=== PATIENT | male | born 1950 | race Caucasian/White ===

== ENCOUNTER 2017-02-14 12:23 | Outpatient (CLI) | payer MEDICARE, MEDICAID ==
[~2017-02-14] VITALS: Ht 182.9 cm; Wt 93.9 kg
[2017-02-14 12:34] VITALS: BP 106/69
[2017-02-14 13:50] LABS: BASOPHILS # (AUTO) 0.1 10^3/uL (0.0-0.1); BASOPHILS % (AUTO) 2 % (0-10); EOSINOPHILS # (AUTO) 0.6 10^3/uL (0.0-0.3); EOSINOPHILS % (AUTO) 8 % (0-10); LYMPHOCYTES # (AUTO) 2.5 X 10^3 (1.0-4.0); LYMPHOCYTES % (AUTO) 34 % (12-44); MEAN CORPUSCULAR HEMOGLOBIN 28 PG (25-34); MEAN CORPUSCULAR HGB CONC 35 G/DL (32-36); MEAN CORPUSCULAR VOLUME 81 FL (80-99); MEAN PLATELET VOLUME 9.6 FL (7.4-10.4); MONOCYTES % (AUTO) 13 % (0-12); NEUTROPHILS # (AUTO) 3.2 X 10^3 (1.8-7.8); NEUTROPHILS % (AUTO) 44 % (42-75); PLATELET COUNT 269 10^3/uL (130-400); RED BLOOD COUNT 4.56 10^6/uL (4.35-5.85); RED CELL DISTRIBUTION WIDTH 15.4 % (10.0-14.5); WHITE BLOOD COUNT 7.4 10^3/uL (4.3-11.0)
[2017-02-14 14:17] LABS: CALCIUM 9.7 MG/DL (8.5-10.1); CREATININE SERUM 1.69 MG/DL (0.60-1.30); POTASSIUM 3.9 MMOL/L (3.6-5.0)
[2017-02-14] MEDS ORDERED: METF1000 PO (15:09)
[2017-02-14] MEDS ORDERED: ROSU40TA20 PO (15:09)
[2017-02-14] MEDS ORDERED: FURO40TA4 PO (15:09)
[2017-02-14] MEDS ORDERED: RT-ALBUINH IH (15:09)
[2017-02-14] MEDS ORDERED: LOSA25TA21 PO (15:09)
[2017-02-14] MEDS ORDERED: APIX5TAB PO (15:09)
[2017-02-14] MEDS ORDERED: AMIT25TA9 PO (15:09)
[2017-02-14] MEDS ORDERED: CARV12.53 PO (15:09)
[2017-02-14] MEDS ORDERED: ASPI-586 PO (15:09)
[2017-02-14] MEDS ORDERED: HYDR-3812 PO (15:09)
== END 2017-02-14 13:10 | disposition home or self-care (01) ==
LOC: PREOP 12:23
PROVIDERS: ATTEND Orthopaedic Surgery
DX: Z01.812 Encounter for preprocedural laboratory examination (principal); Z11.2 Encounter for screening for other bacterial diseases; M48.06 Spinal stenosis, lumbar region; Z22.322 Carrier or suspected carrier of Methicillin resistant Staphylococcus aureus
CPT/HCPCS: 36415; 80048; 85025; 86850; 86900; 86901; 87081

== ENCOUNTER 2017-02-18 09:24 | Inpatient (IN) | payer MEDICARE, MEDICAID ==
[2017-02-18] VITALS (12 sets, daily range): BP systolic 80–132; BP diastolic 48–86
[~2017-02-18] VITALS: Ht 182.9 cm; Wt 93.9 kg
[~2017-02-18 09:24] MED LIST: AMIT25TA9 PO; APIX5TAB PO; ASPI-586 PO; CARV12.53 PO; FURO40TA4 PO; HYDR-3812 PO; LOSA25TA21 PO; METF1000 PO; ROSU40TA20 PO; RT-ALBUINH IH
[2017-02-18] MEDS ORDERED: BACITRACIN 100,000 UNIT/NS 1000 ML POUR BOTTLE IR ONE ×2 (09:45)
[2017-02-18] MEDS ORDERED: ceFAZolin 2 GM/NS 50 ML IV ONE (10:15)
[2017-02-18] MEDS ORDERED: CATHETER FLUSH 10 ML SYR IV PRN (10:15)
[2017-02-18] MEDS ORDERED: FAMOTIDINE 20MG/2ML IV (PEPCID) ONE (10:33)
[2017-02-18] MEDS ORDERED: FAMOTIDINE 20MG/2ML IV (PEPCID) IV ONE (10:45)
[2017-02-18] MEDS: LACTATED RINGERS 1,000 ML IV PRN ×3 (10:55→15:00)
[2017-02-18] MEDS ORDERED: ONDANSETRON 4 MG/2 ML (SDV) Z0FRAN ONE (11:13)
[2017-02-18] MEDS ORDERED: SEVOFLURANE (ULTANE) 15 ML INHAL SOLN ONE ×14 (11:13→15:07)
[2017-02-18] MEDS ORDERED: ROCURONIUM 50 MG/5 ML (ZEMURON) VIAL IV ONE ×2 (11:13→14:28)
[2017-02-18] MEDS ORDERED: proPOfol 200 MG/20 ML (DIPRIVAN) VIAL IV ONE (11:13)
[2017-02-18] MEDS ORDERED: DEXAMETHASONE PF 10 MG/ML (DECADRON) VIAL ONE (11:13)
[2017-02-18] MEDS ORDERED: LACTATED RINGERS 1,000 ML IV ONE ×3 (11:13→14:00)
[2017-02-18] MEDS ORDERED: fentaNYL INJECTION 250 MCG/5 ML AMP ONE (11:14)
[2017-02-18] MEDS ORDERED: MIDAZOLAM 2 MG/2 ML (VERSED) VIAL ONE (11:14)
[2017-02-18] MEDS ORDERED: BUP/EPI 0.5% 1:200,000 (MARCAINE) 10ML VIAL IJ ONE (11:49)
[2017-02-18] MEDS ORDERED: VANCOMYCIN 1000 MG/VIAL ONE (11:50)
[2017-02-18] MEDS ORDERED: NS (IVPB) 100 ML ONE (14:00)
[2017-02-18] MEDS ORDERED: DEXMEDETOMIDINE 200 MCG/2 ML (PRECEDEX) VIAL IV ONE (14:00)
[2017-02-18] MEDS ORDERED: NEOSTIGMINE (BLOXIVERZ ) 1 MG/1ML 10 ML VIAL ONE (14:30)
[2017-02-18] MEDS ORDERED: GLYCOPYRROLATE 0.2 MG/ML (ROBINUL) 2 ML VIAL ONE (14:30)
[2017-02-18] MEDS ORDERED: MILK OF MAGNESIA 400 MG/5 ML 30 ML UDC PO PRN (15:15)
[2017-02-18] MEDS ORDERED: BISACODYL 5 MG (DULCOLAX) TABLET PO PRN (15:15)
[2017-02-18] MEDS ORDERED: ACETAMINOPHEN 325 MG TABLET/CAPLET (TYLENOL) PO PRN (15:15)
[2017-02-18] MEDS ORDERED: NALOXONE 0.4 MG/ML 1 ML (NARCAN) VIAL IV PRN (15:15)
[2017-02-18] MEDS ORDERED: BISACODYL 10 MG SUPP (DULCOLAX) PR PRN (15:15)
[2017-02-18] MEDS ORDERED: PROMETHAZINE INJ 25 MG/ML (PHENERGAN) AMP IVP PRN (15:15)
[2017-02-18] MEDS ORDERED: ONDANSETRON 4 MG/2 ML (SDV) Z0FRAN IVP PRN (15:15)
[2017-02-18] MEDS ORDERED: MEPERIDINE (DEMEROL) INJ 50 MG/ML IVP PRN (15:15)
[2017-02-18] MEDS ORDERED: ONDANSETRON 4 MG/2 ML (SDV) Z0FRAN IV PRN ×2 (15:15)
[2017-02-18] MEDS ORDERED: HYDROmorphone (DILAUDID) 2 MG/ML VIAL IVP PRN (15:15)
[2017-02-18] MEDS ORDERED: RT-ALBUTEROL HFA (VENTOLIN) PER PUFF IH PRN (15:15)
[2017-02-18] MEDS ORDERED: morphine INJ 10 MG/ML 1ML (SYR OR VIAL) IVP PRN (15:15)
--- NOTE | 2017-02-18 16:12 | Diagnostic Imaging Report ---
INDICATION: Low back pain. DISCUSSION: Fluoroscopic support is provided during intraoperative posterior fusion of the lower lumbar spine. Please see the operative report for full detail. Fluoroscopy time: 46 seconds. IMPRESSION: 1. Intraoperative lumbar spine fusion. Dictated by: Dictated on workstation # [id number]
[2017-02-18] MEDS ORDERED: NS IV 500 ML 500 ML IV ONE (17:00)
[2017-02-18] MEDS ORDERED: RT-ALBUTEROL SULF 2.5 MG/3 ML PRE-MIX VIAL IH PRN (18:15)
[2017-02-18] MEDS: ceFAZolin INJECTION 1,000 MG in NS (IVPB) 50 ML IV SCH (20:46)
[2017-02-18] MEDS ORDERED: NON-FORMULARY MEDICATION 1 EA EA (Rosuvastatin Calcium 40 MG) PO SCH (21:00)
[2017-02-18] MEDS: ROSUVASTATIN 20 MG (CRESTOR) TABLET PO SCH (21:06)
[2017-02-18] MEDS: DOCUSATE SODIUM 100 MG (COLACE) CAP PO SCH (21:07)
[2017-02-18] MEDS: FAMOTIDINE 20 MG (PEPCID) TABLET PO SCH (21:07)
[2017-02-18] MEDS: AMITRIPTYLINE 25 MG (ELAVIL) TAB PO SCH (21:07)
[2017-02-18] MEDS: CYCLOBENZAPRINE 10 MG (FLEXERIL) TAB PO PRN (21:07)
[2017-02-18] MEDS: morphine INJ 4 MG/ML 1 ML (VIAL/SYRINGE) IVP PRN (21:20)
[2017-02-18] MEDS: CARVEDILOL 12.5 MG (COREG) TABLET PO SCH (22:30)
[2017-02-18] MEDS: oxyCODONE/APAP 5/325MG (PERCOCET 5) TABLET PO PRN (22:31)
[2017-02-19] VITALS (9 sets, daily range): BP systolic 90–115; BP diastolic 44–69
[2017-02-19] MEDS: ceFAZolin INJECTION 1,000 MG in NS (IVPB) 50 ML IV SCH ×2 (04:22→12:13)
[2017-02-19 05:27] LABS: MEAN PLATELET VOLUME 9.6 FL (7.4-10.4); RED BLOOD COUNT 3.64 10^6/uL (4.35-5.85); RED CELL DISTRIBUTION WIDTH 14.9 % (10.0-14.5); WHITE BLOOD COUNT 10.2 10^3/uL (4.3-11.0)
[2017-02-19 05:51] LABS: ALANINE AMINOTRANSFERASE 65 U/L (0-55); ALBUMIN 3.3 GM/DL (3.2-4.5); ANION GAP 8 MMOL/L (5-14); ASPARTATE AMINO TRANSFERASE 82 U/L (5-34); BILIRUBIN,TOTAL 0.4 MG/DL (0.1-1.0); BLOOD UREA NITROGEN 14 MG/DL (7-18); BUN/CREATININE RATIO 15; CALCIUM 8.3 MG/DL (8.5-10.1); CARBON DIOXIDE 23 MMOL/L (21-32); CHLORIDE 103 MMOL/L (98-107); CREATININE SERUM 0.94 MG/DL (0.60-1.30); GFR ESTIMATED > 60; GLUCOSE 187 MG/DL (70-105); POTASSIUM 3.8 MMOL/L (3.6-5.0); SODIUM 134 MMOL/L (135-145); TOTAL PROTEIN 5.9 GM/DL (6.4-8.2)
--- NOTE | 2017-02-19 07:53 | Anesthesia-General Post-Op ---
General Patient Condition Mental Status/LOC: Same as Preop Cardiovascular: Satisfactory Nausea/Vomiting: Absent Respiratory: Satisfactory Pain: Controlled Complications: Absent Post Op Complications Complications None Follow Up Care/Instructions Patient Instructions None needed. Anesthesia/Patient Condition Patient Condition Patient is doing well, no complaints, stable vital signs, no apparent adverse anesthesia problems. No complications reported per nursing. D/C home per [facility] [place] Criteria: No TUSHAR BRAR CRNA Feb 19, 2017 07:53
[2017-02-19] MEDS ORDERED: ROPI1TAB2 PO (08:57)
[2017-02-19] MEDS ORDERED: INSU100V16 SQ (08:57)
[2017-02-19] MEDS ORDERED: GEMF600T3 PO (08:57)
[2017-02-19] MEDS ORDERED: TIZA4TAB3 PO (08:57)
[2017-02-19] MEDS ORDERED: INSU100I29 SQ (08:57)
[2017-02-19] MEDS ORDERED: ESOM40CA52 PO (08:57)
[2017-02-19] MEDS ORDERED: INSU100I29 SC (08:57)
[2017-02-19] MEDS: LOSARTAN 25 MG (COZAAR) TAB PO SCH (09:04)
[2017-02-19] MEDS: CARVEDILOL 12.5 MG (COREG) TABLET PO SCH ×2 (09:05→21:16)
[2017-02-19] MEDS: DOCUSATE SODIUM 100 MG (COLACE) CAP PO SCH ×2 (09:05→21:16)
[2017-02-19] MEDS: FUROSEMIDE 40 MG (LASIX) TAB PO SCH (09:05)
[2017-02-19] MEDS: MULTIVIT W/MINERALS TAB (THERAGRAN M) PO SCH (09:05)
[2017-02-19] MEDS: FAMOTIDINE 20 MG (PEPCID) TABLET PO SCH ×2 (09:06→21:16)
[2017-02-19] MEDS: oxyCODONE/APAP 5/325MG (PERCOCET 5) TABLET PO PRN ×3 (09:07→21:16)
[2017-02-19] MEDS ORDERED: RT-ALBUTEROL/IPRATROPIUM 3 ML (DUONEB) VIAL INH SCH (09:45)
[2017-02-19] MEDS ORDERED: SCOPOLAMINE 1.5 MG (TRANSDERM-SCOP) PATCH TOP SCH (09:45)
--- NOTE | 2017-02-19 09:45 | Physical Therapy Evaluation ---
PT Evaluation-General Medical Diagnosis Admission Date Feb 18, 2017 at 09:24 Medical Diagnosis: stenosis Onset Date: Feb 18, 2017 Therapy Diagnosis Therapy Diagnosis: general weakness/debility Height/Weight Height (Feet): 6 Height (Inches): 0.00 Weight (Pounds): 207 Weight (Ounces): 0.0 Precautions Precautions/Isolations: Standard Precautions Referral Physician: Marko Reason for Referral: Evaluation/Treatment Medical History Additional Medical History per patient, unremarkable Current History s/p spinal surgery Reviewed History: Yes Social History Home: Single Level Current Living Status: Spouse Entry Into Home: Stairs With Railing PT Steps Into Home: 2 Prior/Core FIM Prior Level of Function Functional [place] Measure 0=Not Assessed/NA 4=Minimal Assistance 1=Total Assistance 5=Supervision or Setup 2=Maximal Assistance 6=Modified [place] 3=Moderate Assistance 7=Complete [place] Bed Mobility: 6 Transfers (B,C,W/C) (FIM): 6 Gait: 6 uses FWW PLOF PT Evaluation-Current Subjective Patient agrees to PT. No c/o at this time. Pain Numeric Pain Scale: 5-Moderate Pain Location: Lower Location Body Site: Back Pain Description: Acute Objective Patient Orientation: Normal For Age Attachments: Oxygen, Drains ROM/Strength ROM Lower Extremities bilateral LE WNL Strenght Lower Extremities bilateral LE WNL Integumentary/Posture Integumentary refer to nursing notes Bowel Incontinence: No Bladder Incontinence: No Posture WNL Neuromuscular (Tone, Coordination, Reflexes) slightly diminished coordination due to pain Sensory Vision: Functional Hearing: Functional Sensation Right Lower Extremit: Intact Sensation Left Lower Extremity: Intact Transfers Functional [place] Measure 0=Not Assessed/NA 4=Minimal Assistance 1=Total Assistance 5=Supervision or Setup 2=Maximal Assistance 6=Modified [place] 3=Moderate Assistance 7=Complete [place] Transfers (B, C, W/C) (FIM): 5 Scootin Rollin Supine to/from Sit: 5 Sit to/from Stand: 5 patient requires time to complete all functional tasks due to pain Gait Mode of Locomotion: Walk Anticipated Mode of Locomotion: Walk Gait (FIM): 5 Distance (FIM): 3=150 ft Distance: 150' Gait Level of Assist: 5 Gait Assistive Device: FWW Comments/Gait Description slow, steady, functional, slightly antalgic Balance Sitting Static: Normal Sitting Dynamic: Normal Standing Static: Good Standing Dynamic: Good Assessment/Needs 66 y.o. male, will benefit from short term skilled PT to address functional strength and mobility to improve current LOF and to safely return to home with spouse at maximum LOF. Rehab Potential: Good PT Prison Goals Central Services Tech Goals PT Prison Goals Time Frame: Feb 26, 2017 Transfers (B,C,W/C) (FIM): 6 Gait (FIM): 6 Gait distance (FIM): 3=150 ft Distance: 250' Gait Level of Assist: 6 Gait Assistive Device: FWW PT Plan Problem List Problem List: Activity Tolerance, Functional Strength, Bed Mobility Treatment/Plan Treatment Plan: Continue Plan of Care Treatment Plan: Bed Mobility, Education, Functional Activity Marco A, Functional Strength, Gait, Safety, Therapeutic Exercise, Transfers Treatment Duration: Feb 19, 2017 Frequency: 6 times per week Estimated Hrs Per Day: .25 hour per day Patient and/or Family Agrees t: Yes Safety Risks/Education Patient Education: Safety Issues Teaching Recipient: Patient Teaching Methods: Discussion Response to Teaching: Verbalize Understanding Discharge Recommendations Therapy D/C Recommendations: Home w/ Family Support Time/GCodes Time In: 855 Time Out: 905 Total Billed Treatment Time: 10 Total Billed Treatment 1 visit EVLowC 10 min G Codes Necessary: CRYSTAL Alicia PT Feb 19, 2017 09:45
--- NOTE | 2017-02-19 09:51 | Consultation-Hospitalist ---
HPI History of Present Illness: HPI/Chief Complaint CC: Lumbar spine surgery w/hardware placement HPI: This is a 66-year-old white male patient of Dr. Currie in [place], [place] that presents after an uncomplicated spine surgery by Dr. Zhu yesterday. He has multiple issues including high sugar that he was placed on insulin recently due to steroid administration that caused hyperglycemia by Dr. Currie and that will be addressed along with difficulty urinating and just completed Bactrim antibiotic for UTI the day before in addition severe nausea that likely is caused by narcotics on an empty stomach in addition to smoking cessation of which he is now on oxygen and does not use it at home and will require insulin spirometry and nebulizer treatments. Multiple issues will be addressed and managed. Source: patient Date Seen 02/19/17 Attending Physician Srinivasa Zhu DO PCP No,Local Physician Referring Physician Date of Admission Feb 18, 2017 at 09:24 Home Medications & Allergies Home Medications Reviewed patient Home Medication Reconciliation Form Allergies Allergies Coded Allergies ibuprofen (Verified Allergy, Unknown, 02/14/17) lisinopril (Verified Allergy, Unknown, 02/14/17) sertraline (Verified Allergy, Unknown, 02/14/17) Past Qdmxftp-Jfokvs-Bnsxbd Hx Patient Social History Marrital Status: Employed/Student: retired (previously worked at [employer]) Alcohol Use: Denies Use Recreational Drug Use: No Smoking Status: Current Everyday Smoker Type Used: Cigarettes Physical Abuse Screen: No Sexual Abuse: No Recent Foreign Travel: No Contact w/other who traveled: No Recent Hopitalizations: No Recent Infectious Disease Expo: No Seasonal Allergies Seasonal Allergies: Yes Surgeries HX Surgeries: Yes Surgeries: Orthopedic Respiratory Hx Respiratory Disorders: Yes Respiratory Disorders: COPD, Pneumonia Cardiovascular Hx Cardiovascular Disorders: Yes Cardiac Disorders: High Cholesterol, Hypertension Neurological Hx Neurological Disorders: No Genitourinary Hx Genitourinary Disorders: Yes Genitourinary Disorders: Kidney Infection, Prostate Problems, Bladder Infection Gastrointestinal Hx Gastrointestinal Disorders: Yes Musculoskeletal Hx Musculoskeletal Disorders: Yes Musculoskeletal Disorders: Arthritis, Chronic Back Pain Endocrine Hx Endocrine Disorders: Yes Endocrine Disorders: Diabetes, Insulin dep HEENT HX ENT Disorders: No Hearing Impairment: Denies Cancer Hx Cancer: Yes Cancer: Prostate (radiation treatment) Psychosocial Hx Psychiatric Problems: Yes Behavioral Health Disorders: Depression Integumentary HX Skin/Integumentary Disorder: No Reviewed Nursing Assessment Reviewed/Agree w Nursing PMH: Yes Review of Systems Constitutional: see HPI, dizziness, weakness EENTM: no symptoms reported Respiratory: cough Cardiovascular: no symptoms reported Gastrointestinal: nausea, vomiting Genitourinary: discharge, dysuria, frequency, hematuria, hesitancy Musculoskeletal: back pain Skin: no symptoms reported Psychiatric/Neurological: No Symptoms Reported All Other Systems Reviewed Negative Unless Noted: Yes Physical Exam Physical Exam Vital Signs Vital Sign - Last 12Hours 02/18/17 11:21 Temp 98.0 Pulse 85 Resp 18 B/P (MAP) 132/86 Pulse Ox 93 O2 Delivery Room Air Capillary Refill : General Appearance: No Apparent Distress, WD/WN, Chronically ill Eyes: Bilateral Eye Normal Inspection, Bilateral Eye PERRL HEENT: PERRL/EOMI, Normal ENT Inspection, Pharynx Normal Neck: Full Range of Motion, Normal Inspection, Non Tender, Supple, Carotid Bruit Respiratory: Chest Non Tender, Lungs Clear, No Accessory Muscle Use, No Respiratory Distress, Decreased Breath Sounds Cardiovascular: Regular Rate, Rhythm, No Edema, No Gallop, No JVD, No Murmur, Normal Peripheral Pulses Gastrointestinal: Normal Bowel Sounds, No Organomegaly, No Pulsatile Mass, Non Tender, Soft Back: Decreased Range of Motion, Vertebral Tenderness Extremity: Normal Capillary Refill, Normal Inspection, Normal Range of Motion, Non Tender, No Calf Tenderness, No Pedal Edema Neurologic/Psychiatric: Alert, Oriented x3, No Motor/Sensory Deficits, Normal Mood/Affect Skin: Normal Color, Warm/Dry Lymphatic: No Adenopathy Results Results/Procedures Lab Laboratory Tests 02/19/17 04:58 Assessment/Plan Admission Diagnosis Assessment: Uncomplicated lumbar spine surgery POD # 1 Recent UTI with now he urgency and frequency and hesitancy checking UA Diabetes mellitus insulin requiring out of control due to steroid administration Hypertension Hyperlipidemia Current smokers smoking cessation counseled COPD Prostate cancer status post radiation treatment Severe nausea with narcotics on an empty stomach Assessment and Plan Plan: Pain medication Nausea treatment Monitor labs Nebulizer treatments Incentive spirometer Supplies for diabetes will be facilitated by social work consult Monitor closely Clinical Quality Measures DVT/VTE Risk/Contraindication: Risk Factor Score Per Nursin RFS Level Per Nursing on Admit: 4+=Very High LUZ ELENA SKINNER DO Feb 19, 2017 09:51
[2017-02-19] MEDS: BETHANECHOL 25 MG (URECHOLINE) TAB PO SCH ×3 (10:23→21:16)
--- NOTE | 2017-02-19 10:47 | Diagnostic Imaging Report ---
2 views of the lumbar spine. INDICATION: Postoperative evaluation. FINDINGS: There are changes of laminectomy and posterior fusion hardware placement seen at L5 and S1 levels. The laminectomy appears to be centered around L4-L5 level. There is satisfactory alignment of the posterior spinal line. Prominent anterior osteophytes at multiple levels seen. There is suggestion of bilateral SI joint fusion. Posteriorly projecting drain is seen. IMPRESSION: Posterior fusion hardware along L5-S1 level noted in good alignment. Dictated by: Dictated on workstation # [id number]
[2017-02-19 11:17] LABS: BILIRUBIN,URINE NEGATIVE (NEGATIVE); KETONES,URINE NEGATIVE (NEGATIVE); LEUKOCYTE ESTERASE ,URINE NEGATIVE (NEGATIVE); NITRITE,URINE NEGATIVE (NEGATIVE); PH,URINE 6 (5-9); PROTEIN,URINE 1+ (NEGATIVE); UROBILINOGEN,URINE NORMAL (NORMAL)
--- NOTE | 2017-02-19 11:17 | OPERATIVE REPORT ---
PROCEDURE PHYSICIAN: ISRA ZHU DATE OF PROCEDURE: 02/18/2017 SURGEON: Dr. Zhu, ophthalmic surgical assistant GILBERTO Hernandez. This is a medically necessary procedure and boiler assistant operator is necessary for retraction of vital neurovascular structures. Without an boiler assistant operator, the procedure would not be possible. PREOPERATIVE DIAGNOSES: 1. Lumbar spinal stenosis (foraminal, central, connective tissue). 2. Lumbar radiculopathy. 3. Neurogenic claudication. POSTOPERATIVE DIAGNOSES: 1. Lumbar spinal stenosis (foraminal, central, connective tissue). 2. Lumbar radiculopathy. 3. Neurogenic claudication. PROCEDURE PERFORMED: 1. L5-S1 posterior instrumentation. 2. L5-S1 posterior spinal fusion. 3. L5-S1 and L4-5 bilateral laminectomies, hemifacetectomies and foraminotomies. 4. Use of human allograft for spine. 5. Use of local bone autograft. PLEASE NOTE: In this procedure the laminectomies are both revision laminectomies. COMPLICATIONS: None. SPECIMEN SENT: None. ESTIMATED BLOOD LOSS: See anesthesia record. HISTORY OF PRESENT ILLNESS: Mr. Stokes is a very pleasant 66-year-old gentleman who presented to me with severe bilateral lower extremity pain which was neurogenic in nature. MRI did demonstrate spinal stenosis. He had a history of prior decompression however MRI demonstrated residual foraminal stenosis. He did wish to proceed with operative intervention. OPERATION: The patient was identified by name on wrist band in the preoperative holding area. His operative site was signed, consent was signed. SCDs were placed, neural monitoring was hooked up and antibiotics were started. She was taken operating room theater, placed under general endotracheal tube anesthesia and transferred in the operating room table in the prone position. All bony prominences were well padded. He was prepped and draped usual sterile fashion. A formal timeout was conducted. Lateral x-ray was brought in marked out the extent of my incision. I made an incision from the spinous process of L4 to spinous process of S1. I proceeded with a bilateral subperiosteal paraspinal muscular approach. There was significant scar tissue due to prior surgery which made this process quite difficult. However after the exposure I did bring a lateral x-ray in to assist with my screw trajectory. I placed pedicle screws bilaterally in L5 and S1. I verified the location on AP and lateral x-ray as well as EMG neural monitoring. Please note that the left L5 screw appeared to be lateral on imaging. Therefore, I did remove this screw and used a sounder to palpate the medial and lateral pedicle castrejon and I did decide that the screw was in pedicle throughout its entirety. Therefore, I replaced the screw reassessed imaging. At this point, I did a decompression of the complete laminectomy, L4-5 and 5-1. I paid particular attention to the exiting left nerve root at L5-S, there was significant stenosis here. I did follow it out, there was no further compression at this level or at L4-5. At this point, I irrigated the wound with 2 liters of antibiotic enhanced irrigation. I placed a deep subfascial Hemovac drain. I sewed that drain into place. I maintained hemostasis. At this point, I decorticated the remaining posterior bony elements and packed human allograft and local bone autograft in the left and right gutter to promote posterior spinal fusion and closed the wound in my usual layered fashion utilizing 0 Vicryl, followed by 2-0 Vicryl, followed by roberto for skin. I applied dressings, took the patient in supine position to the PACU where he awoke without incident. He tolerated the procedure well. PLAN: The plan at this time is to admit the patient for IV antibiotics, IV pain control and postoperative monitoring. Get the patient out of bed on postop day one. Discontinue the Dc catheter and drain per my protocol. Please note instrumentation utilized for this was new Nuvasive for everything, neural monitoring was stable throughout. Job ID: [id number] Dictated Date: 02/18/2017 14:52:35 Circular Ripsaw Operator Date: 02/19/2017 10:58:50 / kwaku
[2017-02-19 11:27] LABS: SQUAMOUS EPITHELIAL CELL,UR RARE /HPF; WBC,URINE 0-2 /HPF
[2017-02-19] MEDS: PHENAZOPYRIDINE 100 MG (PYRIDIUM) TABLET PO SCH ×2 (12:13→17:28)
[2017-02-19] MEDS: morphine INJ 4 MG/ML 1 ML (VIAL/SYRINGE) IVP PRN ×2 (12:14→23:54)
[2017-02-19] MEDS: inSUlin ASPART (NovoLOG) 1 UNIT/0.01 ML (CHARGE PER UNIT) SC SCH ×3 (12:18→21:16)
--- NOTE | 2017-02-19 12:18 | Progress Note (SOAP) ---
Subjective Date Seen by Provider: Feb 19, 2017 Time Seen by Provider: 07:10 Subjective/Events-last exam POD #1 s/p lumbar decompression and fusion. C/o back pain, no leg pain. Also c /o nausea. Denies c/p. States he hasn't been checking his bgl due to lack of supplies. Review of Systems General: No Chills, No Night Sweats HEENT: No Head Aches, No Visual Changes Cardiovascular: No: Chest Pain, Palpitations Gastrointestinal: Abdominal Pain, Nausea, Vomiting Genitourinary: No Dysuria, No Frequency Musculoskeletal: back pain Neurological: No: Change in speech, Incoordination, Numbness, Weakness Objective Exam Vital Signs Date Time Temp Pulse Resp B/P (MAP) Pulse Ox O2 Delivery O2 Flow Rate FiO2 02/19/17 11:09 97 Nasal Cannula 3.50 02/19/17 08:00 98.9 84 20 115/67 96 Nasal Cannula 5.00 02/19/17 07:31 96 Nasal Cannula 3.50 02/19/17 04:45 86 105/66 02/19/17 03:22 99.2 81 24 90/54 95 Nasal Cannula 5.00 02/19/17 02:45 97 Nasal Cannula 3.00 02/19/17 02:16 97.3 83 16 93/44 97 Nasal Cannula 5.00 02/19/17 00:32 98.2 02/19/17 00:29 80 16 92/55 95 Nasal Cannula 5.00 02/18/17 22:45 95 Nasal Cannula 3.00 02/18/17 22:00 99.3 84 23 118/69 97 Nasal Cannula 5.00 02/18/17 21:00 Nasal Cannula 3.00 02/18/17 20:48 79 18 96/58 Nasal Cannula 5.00 02/18/17 19:48 76 18 104/65 Nasal Cannula 5.00 02/18/17 18:56 99 Nasal Cannula 5.00 02/18/17 18:48 72 18 122/75 Nasal Cannula 5.00 02/18/17 18:18 73 16 107/67 100 Nasal Cannula 5.00 02/18/17 17:43 74 18 101/57 96 Nasal Cannula 5.00 02/18/17 17:13 77 18 90/56 93 Nasal Cannula 5.00 02/18/17 16:56 80/48 02/18/17 16:41 70 18 85/49 92 Nasal Cannula 3.00 02/18/17 16:30 66 18 92/55 93 Nasal Cannula 3.00 02/18/17 16:15 96.0 67 20 115/67 92 Nasal Cannula 3.00 02/18/17 16:15 Nasal Cannula 3.00 02/18/17 12:17 98.0 I & O 02/19/17 07:00 Intake Total 5140 ml Output Total 1735 ml Balance 3405 ml Capillary Refill : General Appearance: Moderate Distress Results Lab Laboratory Tests 02/18/17 15:12: Glucometer 221H 02/19/17 04:58: White Blood Count 10.2, Red Blood Count 3.64L, Hemoglobin 10.1#L, Hematocrit 31L , Mean Corpuscular Volume 84, Mean Corpuscular Hemoglobin 28, Mean Corpuscular Hemoglobin Concent 33, Red Cell Distribution Width 14.9H, Platelet Count 202, Mean Platelet Volume 9.6, Sodium Level 134L, Potassium Level 3.8, Chloride Level 103, Carbon Dioxide Level 23, Anion Gap 8, Blood Urea Nitrogen 14, Creatinine 0.94, Estimat Glomerular Filtration Rate > 60, BUN/Creatinine Ratio 15, Glucose Level 187H, Calcium Level 8.3L, Total Bilirubin 0.4, Aspartate Amino Transf (AST/SGOT) 82H, Alanine Aminotransferase (ALT/SGPT) 65H, Alkaline Phosphatase 58, Total Protein 5.9L, Albumin 3.3 02/19/17 10:45: Urine Color YELLOW, Urine Clarity CLEAR, Urine pH 6, Urine Specific [place] 1.010L, Urine Protein 1+H, Urine Glucose (UA) 4+H, Urine Ketones NEGATIVE, Urine Nitrite NEGATIVE, Urine Bilirubin NEGATIVE, Urine Urobilinogen NORMAL, Urine Leukocyte Esterase NEGATIVE, Urine RBC (Auto) 1+H, Urine RBC NONE, Urine WBC 0-2, Urine Squamous Epithelial Cells RARE, Urine Crystals NONE, Urine Bacteria NEGATIVE, Urine Casts NONE, Urine Mucus NEGATIVE, Urine Culture Indicated NO 02/19/17 11:30: Glucometer 250H Assessment/Plan Assessment/Plan Assess & Plan/Chief Complaint Assessment; POD #1 s/p lumbar decompression and fusion diabetes nicotine abuse Plan: OOB with brace pain control monitor labs resume insulin regimen and monitor bgl continue drain Clinical Quality Measures DVT/VTE Risk/Contraindication: Risk Factor Score Per Nursin RFS Level Per Nursing on Admit: 4+=Very High LULI CHAVIRA Feb 19, 2017 12:18
--- NOTE | 2017-02-19 15:02 | Physical Therapy Daily Note ---
PT Daily Note-Current Subjective Patient is up in room with FWW. Pain Numeric Pain Scale: 5-Moderate Pain Location: Medial, Lower Location Body Site: Back Pain Description: Acute Mental Status Patient Orientation: Normal For Age Transfers Functional [place] Measure 0=Not Assessed/NA 4=Minimal Assistance 1=Total Assistance 5=Supervision or Setup 2=Maximal Assistance 6=Modified [place] 3=Moderate Assistance 7=Complete IndependenceIRFPAI Quality Coding Scale 6 Independent with activity with or without an assistive device 5 Patient requires set up or clean up by helper. Patient completes activity by themselves 4 Supervision or touching assist (CGA). [place] provide cues , steadying assist 3 The helper provides less than half the effort to complete the activity 2 The helper provides more than half the effort to complete the activity 1 Dependent. The helper does all the effort to complete an activity 7 Patient refused to complete or attempt activity 9 The patient did not perform the activity before the current illness or injury 88 Not attempted due to Medical conditions or safety concerns Transfers (B, C, W/C) (FIM): 6 Scootin Sit to/from Stand: 6 Gait Training Gait (FIM): 6 Distance (FIM): 3=150 ft Distance: 325' Gait Level of Assist: 6 Gait Assistive Device: FWW functional, slow, safe with FWW Assessment Patient is highly motivated with decrease in left LE pain and improvement in mobility. PT to increase activity as tolerated by patient. PT Hub Cutter Apprentice Goals Group Home Goals PT Hub Cutter Apprentice Goals Time Frame: Feb 26, 2017 Transfers (B,C,W/C) (FIM): 6 Gait (FIM): 6 Gait distance (FIM): 3=150 ft Distance: 250' Gait Level of Assist: 6 Gait Assistive Device: FWW PT Plan Treatment/Plan Treatment Plan: Continue Plan of Care Treatment Plan: Bed Mobility, Education, Functional Activity Marco A, Functional Strength, Gait, Safety, Therapeutic Exercise, Transfers Treatment Duration: Feb 26, 2017 Frequency: 6 times per week Estimated Hrs Per Day: .25 hour per day Patient and/or Family Agrees t: Yes Time/GCodes Time In: 1445 Time Out: 1455 Total Billed Treatment Time: 10 Total Billed Treatment 1 visit GT 10 min CRYSTAL SANTIAGO PT Feb 19, 2017 15:02
[2017-02-19] MEDS: RT-ALBUTEROL/IPRATROPIUM 3 ML (DUONEB) VIAL INH SCH ×2 (15:10→18:46)
[2017-02-19] MEDS: ALFUZOSIN HCL 10 MG TAB (UROXATRAL) PO SCH (17:28)
[2017-02-19] MEDS: AMITRIPTYLINE 25 MG (ELAVIL) TAB PO SCH (21:16)
[2017-02-19] MEDS: ROSUVASTATIN 20 MG (CRESTOR) TABLET PO SCH (21:16)
[2017-02-19] MEDS: CYCLOBENZAPRINE 10 MG (FLEXERIL) TAB PO PRN (22:31)
[2017-02-20] MEDS: diphenhydrAMINE 50 MG/ML INJ (BENADRYL) IV PRN ×3 (00:02→21:42)
[2017-02-20] MEDS: oxyCODONE/APAP 5/325MG (PERCOCET 5) TABLET PO PRN ×2 (02:31→09:13)
[2017-02-20 04:00] VITALS: BP 95/56
[2017-02-20 04:56] LABS: BASOPHILS # (AUTO) 0.1 10^3/uL (0.0-0.1); BASOPHILS % (AUTO) 1 % (0-10); EOSINOPHILS # (AUTO) 0.7 10^3/uL (0.0-0.3); EOSINOPHILS % (AUTO) 6 % (0-10); LYMPHOCYTES # (AUTO) 1.7 X 10^3 (1.0-4.0); LYMPHOCYTES % (AUTO) 16 % (12-44); MEAN CORPUSCULAR HEMOGLOBIN 28 PG (25-34); MEAN CORPUSCULAR HGB CONC 34 G/DL (32-36); MEAN CORPUSCULAR VOLUME 83 FL (80-99); MEAN PLATELET VOLUME 9.3 FL (7.4-10.4); MONOCYTES # (AUTO) 1.5 X 10^3 (0.0-1.0); MONOCYTES % (AUTO) 14 % (0-12); NEUTROPHILS # (AUTO) 6.7 X 10^3 (1.8-7.8); NEUTROPHILS % (AUTO) 64 % (42-75); PLATELET COUNT 164 10^3/uL (130-400); RED BLOOD COUNT 3.41 10^6/uL (4.35-5.85); RED CELL DISTRIBUTION WIDTH 14.7 % (10.0-14.5); WHITE BLOOD COUNT 10.5 10^3/uL (4.3-11.0)
[2017-02-20] MEDS: inSUlin ASPART (NovoLOG) 1 UNIT/0.01 ML (CHARGE PER UNIT) SC SCH ×4 (05:09→21:42)
[2017-02-20] MEDS: BETHANECHOL 25 MG (URECHOLINE) TAB PO SCH ×4 (05:09→20:40)
[2017-02-20] MEDS: MULTIVIT W/MINERALS TAB (THERAGRAN M) PO SCH (05:09)
[2017-02-20 05:22] LABS: ALANINE AMINOTRANSFERASE 146 U/L (0-55); ALBUMIN 3.5 GM/DL (3.2-4.5); ANION GAP 10 MMOL/L (5-14); ASPARTATE AMINO TRANSFERASE 231 U/L (5-34); BILIRUBIN,TOTAL 0.7 MG/DL (0.1-1.0); BLOOD UREA NITROGEN 11 MG/DL (7-18); BUN/CREATININE RATIO 10; CALCIUM 9.1 MG/DL (8.5-10.1); CARBON DIOXIDE 21 MMOL/L (21-32); CHLORIDE 100 MMOL/L (98-107); CREATININE SERUM 1.05 MG/DL (0.60-1.30); GFR ESTIMATED > 60; GLUCOSE 212 MG/DL (70-105); POTASSIUM 3.7 MMOL/L (3.6-5.0); SODIUM 131 MMOL/L (135-145); TOTAL PROTEIN 6.4 GM/DL (6.4-8.2)
[2017-02-20] MEDS: RT-ALBUTEROL/IPRATROPIUM 3 ML (DUONEB) VIAL INH SCH ×4 (06:27→19:16)
[2017-02-20] MEDS ORDERED: DOCU100C37 PO (07:27)
[2017-02-20] MEDS ORDERED: OXYC-471 PO (07:27)
[2017-02-20] MEDS ORDERED: ONDA4TAB8 PO (07:27)
--- NOTE | 2017-02-20 07:32 | Progress Note (SOAP) ---
Subjective Date Seen by Provider: Feb 20, 2017 Time Seen by Provider: 07:27 Subjective/Events-last exam POD #2 s/p lumbar decompression and fusion. Currently no complaints, back pain controlled with percocet, denies changes to bilateral lower ext. urinating well. Objective Exam Vital Signs Date Time Temp Pulse Resp B/P (MAP) Pulse Ox O2 Delivery O2 Flow Rate FiO2 02/20/17 06:27 92 Room Air 02/20/17 04:00 97.9 54 22 95/56 92 Nasal Cannula 3.00 02/20/17 00:03 101.1 02/19/17 23:45 101.1 88 24 110/58 95 Nasal Cannula 1.50 02/19/17 20:05 99.1 85 18 98/55 93 Nasal Cannula 2.00 02/19/17 18:46 90 Room Air 02/19/17 15:58 98.0 77 14 110/68 96 02/19/17 15:10 95 Nasal Cannula 1.50 02/19/17 12:00 98.8 87 20 114/69 93 Nasal Cannula 5.00 02/19/17 11:09 97 Nasal Cannula 3.50 02/19/17 08:00 98.9 84 20 115/67 96 Nasal Cannula 5.00 02/19/17 07:31 96 Nasal Cannula 3.50 I & O 02/20/17 07:00 Intake Total 2190 ml Output Total 2155 ml Balance 35 ml Capillary Refill : General Appearance: No Apparent Distress Peripheral Pulses: 2+ Radial Pulses (R), 2+ Radial Pulses (L) Gastrointestinal: non tender, soft Extremity: Normal Capillary Refill, Normal Inspection, Normal Range of Motion, Non Tender, No Calf Tenderness, No Pedal Edema Neurologic/Psychiatric: Alert, Oriented x3, No Motor/Sensory Deficits, Normal Mood/Affect, lining closer II-XII Norm as Tested Skin: Normal Color, Warm/Dry (dressing to lumbar spine CDI, no drainage noted from hemovac) Results Lab Laboratory Tests 02/19/17 10:45: Urine Color YELLOW, Urine Clarity CLEAR, Urine pH 6, Urine Specific [place] 1.010L, Urine Protein 1+H, Urine Glucose (UA) 4+H, Urine Ketones NEGATIVE, Urine Nitrite NEGATIVE, Urine Bilirubin NEGATIVE, Urine Urobilinogen NORMAL, Urine Leukocyte Esterase NEGATIVE, Urine RBC (Auto) 1+H, Urine RBC NONE, Urine WBC 0-2, Urine Squamous Epithelial Cells RARE, Urine Crystals NONE, Urine Bacteria NEGATIVE, Urine Casts NONE, Urine Mucus NEGATIVE, Urine Culture Indicated NO 02/19/17 11:30: Glucometer 250H 02/19/17 16:21: Glucometer 255H 02/19/17 20:41: Glucometer 272H 02/20/17 04:28: White Blood Count 10.5, Red Blood Count 3.41L, Hemoglobin 9.7L, Hematocrit 28L, Mean Corpuscular Volume 83, Mean Corpuscular Hemoglobin 28, Mean Corpuscular Hemoglobin Concent 34, Red Cell Distribution Width 14.7H, Platelet Count 164, Mean Platelet Volume 9.3, Neutrophils (%) (Auto) 64, Lymphocytes (%) (Auto) 16, Monocytes (%) (Auto) 14H, Eosinophils (%) (Auto) 6, Basophils (%) (Auto) 1, Neutrophils # (Auto) 6.7, Lymphocytes # (Auto) 1.7, Monocytes # (Auto) 1.5H, Eosinophils # (Auto) 0.7H, Basophils # (Auto) 0.1, Sodium Level 131L, Potassium Level 3.7, Chloride Level 100, Carbon Dioxide Level 21, Anion Gap 10, Blood Urea Nitrogen 11, Creatinine 1.05, Estimat Glomerular Filtration Rate > 60, BUN/ Creatinine Ratio 10, Glucose Level 212H, Calcium Level 9.1, Total Bilirubin 0.7 , Aspartate Amino Transf (AST/SGOT) 231H, Alanine Aminotransferase (ALT/SGPT) 146H, Alkaline Phosphatase 59, Total Protein 6.4, Albumin 3.5 02/20/17 04:33: Glucometer 242H Assessment/Plan Assessment/Plan Assess & Plan/Chief Complaint A: POD #2 s/p lumbar decompression and fusion Hyponatremia hx of poorly controlled T2 DM recent UTI P: Fluid restrictions, Scripts on chart for percocet, ducosate, and zofran. Patient clear for DC from surgery standpoint. Dr. Lopez will see patient and assess for potential DC today. Clinical Quality Measures DVT/VTE Risk/Contraindication: Risk Factor Score Per Nursin RFS Level Per Nursing on Admit: 4+=Very High SHAWNEE GUAJARDO APRN Feb 20, 2017 7:32 am
[2017-02-20 07:33] VITALS: BP 112/68
[2017-02-20] MEDS: PHENAZOPYRIDINE 100 MG (PYRIDIUM) TABLET PO SCH ×3 (09:13→18:00)
[2017-02-20] MEDS: LOSARTAN 25 MG (COZAAR) TAB PO SCH (09:13)
[2017-02-20] MEDS: CARVEDILOL 12.5 MG (COREG) TABLET PO SCH ×2 (09:13→20:40)
[2017-02-20] MEDS: FUROSEMIDE 40 MG (LASIX) TAB PO SCH (09:13)
[2017-02-20] MEDS: FAMOTIDINE 20 MG (PEPCID) TABLET PO SCH ×2 (09:13→20:40)
[2017-02-20] MEDS: DOCUSATE SODIUM 100 MG (COLACE) CAP PO SCH ×2 (09:16→20:40)
[2017-02-20] MEDS ORDERED: SENNA W/DOCUSATE (SENOKOT S) TABLET PO PRN (09:45)
--- NOTE | 2017-02-20 10:09 | Physical Therapy Daily Note ---
PT Daily Note-Current Subjective Pt sitting up in bed upon arrival. Pt agrees to PT since he just finished breakfast but is wanting Benadryl to help with itching at backside. Nurse gives but warns that this will make pt sleepy shortly. Pain Location: No Pain Reported Comment: Pt reports no pain but just itchy. Mental Status Patient Orientation: Person, Place, Situation Attachments: Drains Transfers Functional [place] Measure 0=Not Assessed/NA 4=Minimal Assistance 1=Total Assistance 5=Supervision or Setup 2=Maximal Assistance 6=Modified [place] 3=Moderate Assistance 7=Complete IndependenceIRFPAI Quality Coding Scale 6 Independent with activity with or without an assistive device 5 Patient requires set up or clean up by helper. Patient completes activity by themselves 4 Supervision or touching assist (CGA). [place] provide cues , steadying assist 3 The helper provides less than half the effort to complete the activity 2 The helper provides more than half the effort to complete the activity 1 Dependent. The helper does all the effort to complete an activity 7 Patient refused to complete or attempt activity 9 The patient did not perform the activity before the current illness or injury 88 Not attempted due to Medical conditions or safety concerns Scootin Rollin Supine to/from Sit: 4 Sit to/from Stand: 5 Bed to/from Chair: 5 Weight Bearing Weight Bearing Restriction: Full Weight Bearing Location Restriction: LE Bilateral Gait Training Distance (FIM): 1=up to 49 ft Distance: 40' Gait Level of Assist: 5 Gait Persons Needed: 1 Gait Assistive Device: FWW Pt walks with slow slightly antalgic gait pattern. Pt doesn't walk far due to Benadryl starting to kick in and pt's legs started to get heavy. Exercises Supine Ex: Rolling Treatments Pt transferred from Supine to EOB to Standing at SBA. Pt stands and walks using FWW at close SBA due to drowsiness. Pt returns to room and rests at EOB while Dr Lopez checks on pt. Pt then transfers from EOB to Supine at Min A for getting legs into bed. Pt also then needed help rolling and positioning on R side. Pt is left sleeping on R side with all needs met, Sp present and all 4 bed rails up for safety. Assessment Current Status: Fair Progress Pt did not sleep well last night and is itchy today, nurse gave Benadryl. Pt was drowsy after Benadryl. 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 Time Frame: Feb 26, 2017 Transfers (B,C,W/C) (FIM): 6 Gait (FIM): 6 Gait distance (FIM): 3=150 ft Distance: 250' Gait Level of Assist: 6 Gait Assistive Device: FWW PT Plan Problem List Problem List: Activity Tolerance, Functional Strength, Safety, Balance, Gait, Transfer Treatment/Plan Treatment Plan: Continue Plan of Care Treatment Plan: Bed Mobility, Education, Functional Activity Marco A, Functional Strength, Gait, Safety, Therapeutic Exercise, Transfers Treatment Duration: Feb 26, 2017 Frequency: 6 times per week Estimated Hrs Per Day: .25 hour per day Patient and/or Family Agrees t: Yes Safety Risks/Education Patient Education: Gait Training, Transfer Techniques, Correct Positioning, Safety Issues Teaching Recipient: Patient, Significant Other Teaching Methods: Discussion Response to Teaching: Verbalize Understanding Time/GCodes Time In: 930 Time Out: 1000 Total Billed Treatment Time: 30 Total Billed Treatment visit, FA (20m) & GT (10m) JORGE CHENG PTA Feb 20, 2017 10:09
--- NOTE | 2017-02-20 10:40 | Progress Note-Hospitalist ---
Progress Note HPI/CC on Admission CC: Lumbar spine surgery w/hardware placement HPI: This is a 66-year-old white male patient of Dr. Currie in [place], [place] that presents after an uncomplicated spine surgery by Dr. Zhu yesterday. He has multiple issues including high sugar that he was placed on insulin recently due to steroid administration that caused hyperglycemia by Dr. Currie and that will be addressed along with difficulty urinating and just completed Bactrim antibiotic for UTI the day before in addition severe nausea that likely is caused by narcotics on an empty stomach in addition to smoking cessation of which he is now on oxygen and does not use it at home and will require insulin spirometry and nebulizer treatments. Multiple issues will be addressed and managed. 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 Cholesterol meds and pain meds discussed as well as liver enzymes. Pt was informed that we will hold off on Tylenol products Pt's asked about pt's temperature. Pt was encouraged to keep doing IS and breathing treatments. Pt can have Advil for fever. Pt won't DC today because of fever and liver enzymes Pt advised to continue smoking cessation. Pt confirms understanding and hopes to continue this. Tm 101, VSS, Pleasant, O x 3, much improved RRR, CTAB except crackles lower bases No edema Laboratory Tests 02/20/17 04:28 Assessment: Uncomplicated lumbar spine surgery POD # 2 Fever w/crackles on exam Recent UTI but nl repeat UA yesterday now improved urination on meds Diabetes mellitus insulin requiring out of control due to steroid administration responding to insulin Hypertension Hyperlipidemia Current smoker smoking cessation counseled COPD Prostate cancer status post radiation treatment Severe nausea with narcotics on an empty stomach now improved Hyponatremia Plan: Pain medication Nausea treatment Monitor labs Nebulizer treatments Incentive spirometer Supplies for diabetes will be facilitated by social work consult Monitor closely Switch to Oxycodone due to elevated liver enzymes Hold Crestor Lactulose Senna Check CXR due to fever and crackles on exam Check am labs Continue IS Continue PT Likely DC tomorrow Scribed by Odessa Gracia under the direct supervision of Dr. Skinner. LUZ ELENA SKINNER DO Feb 20, 2017 10:40
[2017-02-20 12:00] VITALS: BP 95/61
[2017-02-20] MEDS: LACTULOSE SYRUP 10GM/15ML (ENULOSE) 30ML UDC PO SCH ×2 (13:42→20:40)
--- NOTE | 2017-02-20 15:45 | Physical Therapy Daily Note ---
PT Daily Note-Current Subjective Pt was sitting at EOB trying to urinate upon arrival. Pt agreed to try PT this afternoon. Pain Numeric Pain Scale: 5-Moderate Pain Location: Medial, Anterior Location Body Site: Pelvic Pain Description: Sharp Comment: Pt reports pain between belly button & penis anteriorly. Mental Status Patient Orientation: Person, Place, Situation Attachments: Drains Transfers Functional [place] Measure 0=Not Assessed/NA 4=Minimal Assistance 1=Total Assistance 5=Supervision or Setup 2=Maximal Assistance 6=Modified [place] 3=Moderate Assistance 7=Complete IndependenceIRFPAI Quality Coding Scale 6 Independent with activity with or without an assistive device 5 Patient requires set up or clean up by helper. Patient completes activity by themselves 4 Supervision or touching assist (CGA). [place] provide cues , steadying assist 3 The helper provides less than half the effort to complete the activity 2 The helper provides more than half the effort to complete the activity 1 Dependent. The helper does all the effort to complete an activity 7 Patient refused to complete or attempt activity 9 The patient did not perform the activity before the current illness or injury 88 Not attempted due to Medical conditions or safety concerns Scootin Rollin Supine to/from Sit: 4 Sit to/from Stand: 5 Weight Bearing Weight Bearing Restriction: Full Weight Bearing Location Restriction: LE Bilateral Exercises Seated Therapy Exercises: Sit to stand Treatments Pt transfers from EOB to standing using FWW at SBA to try to urinate due to being unable to while at EOB. Pt stands for several minutes trying before reporting drowsiness/tired feeling so needing to sit down. Pt transfers from standing back to EOB then side lying on L side with Min A with legs. Pt rolls to try to get to L side for comfort. Pt is left resting at end of tx with all needs met. Assessment Current Status: Fair Progress Pt has been itchy since last night so Benadryl was given but pt has been drowsy all day. Pt also reports pain between belly button and penis anteriorly. 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 Goals PT Retirement Goals Time Frame: Feb 26, 2017 Transfers (B,C,W/C) (FIM): 6 Gait (FIM): 6 Gait distance (FIM): 3=150 ft Distance: 250' Gait Level of Assist: 6 Gait Assistive Device: FWW PT Plan Problem List Problem List: Activity Tolerance, Functional Strength, Safety, Balance, Gait, Transfer Treatment/Plan Treatment Plan: Continue Plan of Care Treatment Plan: Bed Mobility, Education, Functional Activity Marco A, Functional Strength, Gait, Safety, Therapeutic Exercise, Transfers Treatment Duration: Feb 26, 2017 Frequency: 6 times per week Estimated Hrs Per Day: .25 hour per day Patient and/or Family Agrees t: Yes Safety Risks/Education Patient Education: Transfer Techniques, Correct Positioning, Safety Issues Teaching Recipient: Patient, Significant Other Teaching Methods: Discussion Response to Teaching: Verbalize Understanding Time/GCodes Time In: 1340 Time Out: 1405 Total Billed Treatment Time: 25 Total Billed Treatment visit, FA x2 (25m) JORGE CHENG PTA Feb 20, 2017 15:45
--- NOTE | 2017-02-20 16:24 | Diagnostic Imaging Report ---
EXAMINATION: PA and lateral views of the chest. INDICATION: Fever. FINDINGS: The lungs demonstrate mild interstitial thickening which appears to be chronic. No focal airspace opacity. No prior similar studies are available for comparison, however. The lungs are hyperinflated. The heart size is normal. No effusion or pneumothorax. The mediastinum and doug appear unremarkable. There is a pacemaker with two leads seen. There is also a left shoulder arthroplasty seen. IMPRESSION: The slight prominence of the interstitial markings is favored to be chronic. COPD. Dictated by: Dictated on workstation # [id number]
[2017-02-20 16:50] VITALS: BP 93/52
[2017-02-20] MEDS: ALFUZOSIN HCL 10 MG TAB (UROXATRAL) PO SCH (18:00)
[2017-02-20 19:24] VITALS: BP 97/63
[2017-02-20] MEDS: AMITRIPTYLINE 25 MG (ELAVIL) TAB PO SCH (20:40)
[2017-02-20] MEDS: CYCLOBENZAPRINE 10 MG (FLEXERIL) TAB PO PRN (22:39)
[2017-02-21] VITALS: BP 108/55
[2017-02-21 04:00] VITALS: BP 96/64
[2017-02-21] MEDS: MULTIVIT W/MINERALS TAB (THERAGRAN M) PO SCH (06:07)
[2017-02-21] MEDS: BETHANECHOL 25 MG (URECHOLINE) TAB PO SCH ×2 (06:07→11:19)
[2017-02-21] MEDS: inSUlin ASPART (NovoLOG) 1 UNIT/0.01 ML (CHARGE PER UNIT) SC SCH ×2 (06:07→12:12)
[2017-02-21] MEDS: CYCLOBENZAPRINE 10 MG (FLEXERIL) TAB PO PRN (06:07)
[2017-02-21 06:22] LABS: BASOPHILS % (AUTO) 0 % (0-10); EOSINOPHILS # (AUTO) 0.3 10^3/uL (0.0-0.3); EOSINOPHILS % (AUTO) 3 % (0-10); LYMPHOCYTES # (AUTO) 1.6 X 10^3 (1.0-4.0); LYMPHOCYTES % (AUTO) 14 % (12-44); MEAN CORPUSCULAR HEMOGLOBIN 28 PG (25-34); MEAN CORPUSCULAR HGB CONC 34 G/DL (32-36); MEAN CORPUSCULAR VOLUME 83 FL (80-99); MEAN PLATELET VOLUME 9.3 FL (7.4-10.4); MONOCYTES # (AUTO) 1.4 X 10^3 (0.0-1.0); MONOCYTES % (AUTO) 12 % (0-12); NEUTROPHILS # (AUTO) 8.2 X 10^3 (1.8-7.8); NEUTROPHILS % (AUTO) 71 % (42-75); PLATELET COUNT 196 10^3/uL (130-400); RED BLOOD COUNT 3.59 10^6/uL (4.35-5.85); RED CELL DISTRIBUTION WIDTH 14.8 % (10.0-14.5); WHITE BLOOD COUNT 11.5 10^3/uL (4.3-11.0)
[2017-02-21] MEDS: RT-ALBUTEROL/IPRATROPIUM 3 ML (DUONEB) VIAL INH SCH ×3 (06:38→14:44)
[2017-02-21 06:44] LABS: ALBUMIN 3.4 GM/DL (3.2-4.5); BILIRUBIN,TOTAL 0.7 MG/DL (0.1-1.0); CALCIUM 9.4 MG/DL (8.5-10.1); CREATININE SERUM 1.21 MG/DL (0.60-1.30); POTASSIUM 3.6 MMOL/L (3.6-5.0); TOTAL PROTEIN 6.8 GM/DL (6.4-8.2)
[2017-02-21 07:28] VITALS: BP 97/55
[2017-02-21] MEDS: CARVEDILOL 12.5 MG (COREG) TABLET PO SCH (09:22)
[2017-02-21] MEDS: LOSARTAN 25 MG (COZAAR) TAB PO SCH (09:22)
[2017-02-21] MEDS: FUROSEMIDE 40 MG (LASIX) TAB PO SCH (09:23)
[2017-02-21] MEDS: PHENAZOPYRIDINE 100 MG (PYRIDIUM) TABLET PO SCH ×2 (10:01→12:12)
[2017-02-21] MEDS: FAMOTIDINE 20 MG (PEPCID) TABLET PO SCH (10:01)
[2017-02-21] MEDS: DOCUSATE SODIUM 100 MG (COLACE) CAP PO SCH (10:01)
[2017-02-21] MEDS: LACTULOSE SYRUP 10GM/15ML (ENULOSE) 30ML UDC PO SCH (10:02)
--- NOTE | 2017-02-21 10:47 | Discharge Summary-Hospitalist ---
Diagnosis/Chief Complaint Date of Admission Feb 18, 2017 at 09:24 Date of Discharge Admission Diagnosis Assessment: Uncomplicated lumbar spine surgery POD # 1 Recent UTI with now he urgency and frequency and hesitancy checking UA Diabetes mellitus insulin requiring out of control due to steroid administration Hypertension Hyperlipidemia Current smokers smoking cessation counseled COPD Prostate cancer status post radiation treatment Severe nausea with narcotics on an empty stomach Discharge Diagnosis Assessment: Uncomplicated lumbar spine surgery POD # 3 Fever w/crackles on exam now resolved and nl CXR Recent UTI but nl repeat UA yesterday now improved urination on meds Diabetes mellitus insulin requiring out of control due to steroid administration responding to insulin Hypertension Hyperlipidemia Current smoker smoking cessation counseled COPD Prostate cancer status post radiation treatment Severe nausea with narcotics on an empty stomach now improved Hyponatremia resolved Chart Review: Elevated liver enzymes so DC Tylenol products Pharmacy Review: Pt is on 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 Cholesterol meds and pain meds discussed as well as liver enzymes. Pt was informed that we will hold off on Tylenol products Pt's asked about pt's temperature. Pt was encouraged to keep doing IS and breathing treatments. Pt can have Advil for fever. Pt won't DC today because of fever and liver enzymes Pt advised to continue smoking cessation. Pt confirms understanding and hopes to continue this. Tm 101, VSS, Pleasant, O x 3, much improved RRR, CTAB except crackles lower bases No edema Laboratory Tests 7/ 04:28 Assessment: Uncomplicated lumbar spine surgery POD # 2 Fever w/crackles on exam Recent UTI but nl repeat UA yesterday now improved urination on meds Diabetes mellitus insulin requiring out of control due to steroid administration responding to insulin Hypertension Hyperlipidemia Current smoker smoking cessation counseled COPD Prostate cancer status post radiation treatment Severe nausea with narcotics on an empty stomach now improved Hyponatremia Plan: Pain medication Nausea treatment Monitor labs Nebulizer treatments Incentive spirometer Supplies for diabetes will be facilitated by social work consult Monitor closely Switch to Oxycodone due to elevated liver enzymes Hold Crestor Lactulose Senna Check CXR due to fever and crackles on exam Check am labs Continue IS Continue PT Likely DC tomorrow Scribed by Odessa Gracia under the direct supervision of Dr. Skinner. Reason Hospital Visit/Course CC: Lumbar spine surgery w/hardware placement HPI: This is a 66-year-old white male patient of Dr. Currie in [place], [place] that presents after an uncomplicated spine surgery by Dr. Zhu yesterday. He has multiple issues including high sugar that he was placed on insulin recently due to steroid administration that caused hyperglycemia by Dr. Currie and that will be addressed along with difficulty urinating and just completed Bactrim antibiotic for UTI the day before in addition severe nausea that likely is caused by narcotics on an empty stomach in addition to smoking cessation of which he is now on oxygen and does not use it at home and will require insulin spirometry and nebulizer treatments. Multiple issues will be addressed and managed. 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 Pt's smokes and then comes to visit the pt. Pt and his are fighting with each other. Pt is on Coreg and Losartan, BP is 97/55 Pt refused the soap suds enema and hopped out of bed to the bathroom. Pt will get the soap suds enema today and will be showered No fever, vital signs stable, pleasant, improved, sitting at side of bed, with walker, at bedside Regular rate and rhythm, clear to auscultation bilaterally Plan: Hold Coreg and Losartan for low BP Scribed by Odessa Gracia under the direct supervision of Dr. Skinner. Hospital course: Patient had an uncomplicated surgery by Dr. Zhu. Urinary retention and fever were managed with conservative approach including Urecholine , Pyridium and nebulizer treatments with incentive spirometer with normal chest x-ray respectively. Diabetic supplies were obtained by social work help and postop constipation resolved the day of discharge. He had no problems during the hospital course smoking cessation was counseled and patient will have follow -up with Dr. Zhu upon discharge. Discharge Summary Discharge Physical Examination Allergies: Coded Allergies: ibuprofen (Verified Allergy, Unknown, 02/14/17) lisinopril (Verified Allergy, Unknown, 02/14/17) sertraline (Verified Allergy, Unknown, 02/14/17) Vitals & I&Os Vital Signs Date Time Temp Pulse Resp B/P (MAP) Pulse Ox O2 Delivery O2 Flow Rate FiO2 02/21/17 10:48 94 Room Air 02/21/17 09:00 1.00 02/21/17 07:28 98.2 99 20 97/55 Hospital Course Labs (last 24 hrs) Laboratory Tests 02/20/17 16:42: Glucometer 202H 02/20/17 21:36: Glucometer 251H 02/21/17 05:58: Glucometer 267H 02/21/17 06:00: White Blood Count 11.5H, Red Blood Count 3.59L, Hemoglobin 10.2L, Hematocrit 30L , Mean Corpuscular Volume 83, Mean Corpuscular Hemoglobin 28, Mean Corpuscular Hemoglobin Concent 34, Red Cell Distribution Width 14.8H, Platelet Count 196, Mean Platelet Volume 9.3, Neutrophils (%) (Auto) 71, Lymphocytes (%) (Auto) 14, Monocytes (%) (Auto) 12, Eosinophils (%) (Auto) 3, Basophils (%) (Auto) 0, Neutrophils # (Auto) 8.2H, Lymphocytes # (Auto) 1.6, Monocytes # (Auto) 1.4H, Eosinophils # (Auto) 0.3, Basophils # (Auto) 0.0, Sodium Level 135, Potassium Level 3.6, Chloride Level 101, Carbon Dioxide Level 24, Anion Gap 10, Blood Urea Nitrogen 12, Creatinine 1.21, Estimat Glomerular Filtration Rate 60, BUN/ Creatinine Ratio 10, Glucose Level 234H, Calcium Level 9.4, Total Bilirubin 0.7 , Aspartate Amino Transf (AST/SGOT) 95H, Alanine Aminotransferase (ALT/SGPT) 103H, Alkaline Phosphatase 73, Total Protein 6.8, Albumin 3.4 Pending Labs Laboratory Tests 02/21/17 05:58: Glucometer 267 02/21/17 06:00: White Blood Count 11.5, Red Blood Count 3.59, Hemoglobin 10.2, Hematocrit 30, Mean Corpuscular Volume 83, Mean Corpuscular Hemoglobin 28, Mean Corpuscular Hemoglobin Concent 34, Red Cell Distribution Width 14.8, Platelet Count 196, Mean Platelet Volume 9.3, Neutrophils (%) (Auto) 71, Lymphocytes (%) (Auto) 14, Monocytes (%) (Auto) 12, Eosinophils (%) (Auto) 3, Basophils (%) (Auto) 0, Neutrophils # (Auto) 8.2, Lymphocytes # (Auto) 1.6, Monocytes # (Auto) 1.4, Eosinophils # (Auto) 0.3, Basophils # (Auto) 0.0, Sodium Level 135, Potassium Level 3.6, Chloride Level 101, Carbon Dioxide Level 24, Anion Gap 10, Blood Urea Nitrogen 12, Creatinine 1.21, Estimat Glomerular Filtration Rate 60, BUN/ Creatinine Ratio 10, Glucose Level 234, Calcium Level 9.4, Total Bilirubin 0.7, Aspartate Amino Transf (AST/SGOT) 95, Alanine Aminotransferase (ALT/SGPT) 103, Alkaline Phosphatase 73, Total Protein 6.8, Albumin 3.4 Discharge Home Medications: Active Scripts Active Zofran Odt (Ondansetron) 4 Mg Tab.rapdis 4 Mg PO Q6H PRN Docusate Sodium 100 Mg Capsule 100 Mg PO BID Oxycodone-Acetaminophen 5-325 (Oxycodone HCl/Acetaminophen) 1 Each Tablet 1-2 Tab PO Q4H PRN Reported Gemfibrozil 600 Mg Tablet 600 Mg PO BID Tizanidine HCl 4 Mg Tablet 4 Mg PO BID PRN Novolog (Insulin Aspart) 100 Unit/1 Ml Susp 20 Unit SQ AC PRN Levemir Flextouch (Insulin Detemir) 100 Unit/1 Ml Insuln.pen 25 Unit SQ HS Levemir Flextouch (Insulin Detemir) 100 Unit/1 Ml Insuln.pen 30 Units SC DAILY Esomeprazole Magnesium 40 Mg Capsule.dr 40 Mg PO DAILY Ropinirole HCl 1 Mg Tablet 1 Mg PO HS Proair Hfa (Albuterol Sulfate) 1 Puff Puff 2 Puff IH Q4H PRN Aspir 81 (Aspirin) 81 Mg Tablet.dr 81 Mg PO DAILY Hydrocodon -Acetaminophen 5-325 (Hydrocodone/Acetaminophen) 1 Each Tablet 1 Tab PO Q6H PRN Eliquis (Apixaban) 5 Mg Tablet 5 Mg PO BID Rosuvastatin Calcium 40 Mg Tablet 20 Mg PO HS TAKES 1/2 (40MG) TABLET Metformin HCl 1,000 Mg Tablet 1,000 Mg PO BID Losartan Potassium 25 Mg Tablet 25 Mg PO DAILY Carvedilol 12.5 Mg Tablet 6.25 Mg PO BID TAKES 1/2 (12.5MG) TABLET Furosemide 40 Mg Tablet 40 Mg PO DAILY Amitriptyline HCl 25 Mg Tablet 25 Mg PO HS Instructions to patient/family Please see electonic discharge instructions given to patient. Clinical Quality Measures DVT/VTE Risk/Contraindication: Risk Factor Score Per Nursin RFS Level Per Nursing on Admit: 4+=Very High LUZ ELENA SKINNER DO Feb 21, 2017 10:47
[2017-02-21 12:00] VITALS: BP 87/64
--- NOTE | 2017-02-21 12:57 | Physical Therapy Progress Note ---
Therapy Progress Note PT initiated session, however, patient had to have a BM. Patient to dismiss to home on this date. 1 visit CRYSTAL SANTIAGO PT Feb 21, 2017 12:57
[2017-02-22] MEDS ORDERED: PATCH REMOVAL TP SCH (09:00)
== END 2017-02-21 16:00 | disposition home or self-care (01) | DRG 460 ==
LOC: 4TH 09:24 → SURG 09:25 → EDSTATUS 12:00 → 4TH 16:53
PROVIDERS: ADMIT Orthopaedic Surgery; ATTEND Orthopaedic Surgery
PROC: 01NB0ZZ Release Lumbar Nerve, Open Approach (ICD-10-PCS; 2017-02-18)
PROC: 0SG3071 Fusion of Lumbosacral Joint with Autologous Tissue Substitute, Posterior Approach, Posterior Column, Open Approach (ICD-10-PCS; principal; 2017-02-18 12:19)
DX: M48.07 Spinal stenosis, lumbosacral region (principal); M99.43 Connective tissue stenosis of neural canal of lumbar region; M99.33 Osseous stenosis of neural canal of lumbar region; M47.27 Other spondylosis with radiculopathy, lumbosacral region; E87.1 Hypo-osmolality and hyponatremia; E11.41 Type 2 diabetes mellitus with diabetic mononeuropathy; I11.0 Hypertensive heart disease with heart failure; I50.9 Heart failure, unspecified; E78.00 Pure hypercholesterolemia, unspecified; J44.9 Chronic obstructive pulmonary disease, unspecified; J45.909 Unspecified asthma, uncomplicated; G47.30 Sleep apnea, unspecified; F17.210 Nicotine dependence, cigarettes, uncomplicated; E11.65 Type 2 diabetes mellitus with hyperglycemia; F32.9 Major depressive disorder, single episode, unspecified; R50.9 Fever, unspecified; R74.8 Abnormal levels of other serum enzymes; I25.10 Atherosclerotic heart disease of native coronary artery without angina pectoris; R11.0 Nausea; R39.15 Urgency of urination; R39.11 Hesitancy of micturition; R35.0 Frequency of micturition; M19.91 Primary osteoarthritis, unspecified site; T40.605A Adverse effect of unspecified narcotics, initial encounter; Z85.46 Personal history of malignant neoplasm of prostate; Z87.440 Personal history of urinary (tract) infections; Z95.0 Presence of cardiac pacemaker; Z92.3 Personal history of irradiation; Z86.73 Personal history of transient ischemic attack (TIA), and cerebral infarction without residual deficits; Z79.84 Long term (current) use of oral hypoglycemic drugs
CPT/HCPCS: 36415; 71020; 72100; 80053; 81000; 82962; 85025; 85027; 94640; 94664; 94760